=== PATIENT | male | born 1960 | race Caucasian/White ===

== ENCOUNTER 2016-12-09 12:17 | Inpatient (IN) | payer MEDICAID ==
[~2016-12-09] VITALS: Ht 172.7 cm; Wt 61.5 kg
[~2016-12-09 12:17] MED LIST: MULT-950 PO; QUET200T PO; VITAD1000 PO
[2016-12-09] MEDS ORDERED: LORazepam 2 MG TABLET PO PRN (15:30)
[2016-12-09] MEDS ORDERED: HALOPERIDOL 5 MG TABLET PO PRN (15:30)
[2016-12-09 15:36] VITALS: BP 135/79
[2016-12-09] MEDS ORDERED: INFLUENZA VIRUS VACCINE QVS 2016-17 (3YR+)/PF 60 MCG/0.5 ML SYRINGE IM ONE (16:15)
[2016-12-09] MEDS: QUEtiapine FUMARATE 200 MG TABLET PO SCH (20:43)
[2016-12-09 20:56] VITALS: BP 130/82
[2016-12-10 00:04] VITALS: BP 101/68
[2016-12-10 08:20] LABS: BASOPHILS % (AUTO) 0.6 % (0.0-2.0); EOSINOPHILS % (AUTO) 3.3 % (1.0-6.0); HEMATOCRIT 41.1 % (41-53); HEMOGLOBIN 13.3 g/dL (13.5-17.5); LYMPHOCYTES # (AUTO) 3.5 K/uL (1.0-4.8); MEAN CORPUSCULAR HEMOGLOBIN 33.9 pg (26.0-34.0); MEAN CORPUSCULAR HGB CONC 32.4 G/dL (31.0-37.0); MEAN CORPUSCULAR VOLUME 105 fL (80-100); MONOCYTES # (AUTO) 0.5 K/uL (0.1-1.0); MONOCYTES % (AUTO) 7.8 % (2.0-9.0); NEUTROPHILS # (AUTO) 2.7 K/uL (1.8-7.7); NEUTROPHILS % (AUTO) 38.3 % (40.0-70.0); PLATELET COUNT (AUTO) 242 K/uL (150-450); RED BLOOD CELL COUNT(AUTO) 3.93 MIL/uL (4.50-5.90); RED CELL DISTRIBUTION WIDTH 13.9 % (11.5-14.5)
[2016-12-10 08:34] LABS: ALANINE AMINOTRANSFERASE 16 U/L (12-78); ANION GAP 9 mmol/L (8-16); ASPARTATE AMINOTRANSFERASE 8 U/L (15-37); BILIRUBIN,TOTAL 0.3 mg/dL (0.1-1.0); CALCIUM, TOTAL 8.4 mg/dL (8.8-10.5); CARBON DIOXIDE 27 mmol/L (22-29); CHLORIDE 103 mmol/L (98-107); CREATININE 0.83 mg/dL (0.60-1.30); GLOMERULAR FILTR. RATE CALC > 60 mL/min (>60); POTASSIUM 3.3 mmol/L (3.5-5.1); SODIUM SERUM 139 mmol/L (136-145); TOTAL PROTEIN, SERUM 6.2 g/dL (6.4-8.2); UREA NITROGEN, BLOOD 11 mg/dL (7-18)
[2016-12-10 08:45] VITALS: BP 100/67
[2016-12-10 08:59] LABS: RBC MORPHOLOGY COMMENT ABNORMAL RBC MORPH
[2016-12-10] MEDS ORDERED: ONDANSETRON HCL 4 MG TABLET PO PRN (10:30)
[2016-12-10] MEDS ORDERED: ALBUTEROL SULFATE HFA 90 MCG/PUFF 8 GM INHALER IH PRN (10:30)
[2016-12-10] MEDS ORDERED: CloNIDine HCL 0.1 MG TABLET PO PRN (10:30)
[2016-12-10] MEDS ORDERED: MAGNESIUM HYDROXIDE SUSPENSION 30 ML UDCUP PO PRN (10:30)
[2016-12-10] MEDS ORDERED: MAG HYDROX/AL HYDROX/SIMETH ES 30 ML SUSPENSION UDCUP PO PRN (10:30)
[2016-12-10] MEDS ORDERED: BACITRACIN 28.4 GM OINTMENT TP PRN (10:30)
[2016-12-10] MEDS ORDERED: PETROLATUM,WHITE 71 GM JELLY TP PRN (10:30)
[2016-12-10] MEDS ORDERED: IBUPROFEN 600 MG TABLET PO PRN (10:30)
[2016-12-10] MEDS ORDERED: LOPERAMIDE HCL 2 MG CAPSULE PO PRN (10:30)
[2016-12-10] MEDS ORDERED: POTASSIUM CHLORIDE 20 MEQ ER TABLET PO ONE (10:30)
[2016-12-10] MEDS ORDERED: BENZOCAINE/MENTHOL LOZENGE MM PRN (10:30)
[2016-12-10] MEDS ORDERED: ACETAMINOPHEN 325 MG TABLET PO PRN (10:30)
[2016-12-10 16:05] VITALS: BP 104/68
[2016-12-10] MEDS: QUEtiapine FUMARATE 200 MG TABLET PO SCH (20:56)
[2016-12-11 06:10] VITALS: BP 107/61
[2016-12-11] MEDS: CHOLECALCIFEROL (VIT D3) 1,000 UNITS TABLET PO SCH (08:23)
[2016-12-11 08:48] VITALS: BP 129/70
[2016-12-11 16:24] VITALS: BP 112/70
[2016-12-11] MEDS: QUEtiapine FUMARATE 200 MG TABLET PO SCH (20:28)
[2016-12-11] MEDS: ZOLPIDEM TARTRATE 10 MG TABLET PO PRN (21:30)
[2016-12-12 07:26] VITALS: BP 108/68
[2016-12-12 08:45] VITALS: BP 109/70
[2016-12-12] MEDS: CHOLECALCIFEROL (VIT D3) 1,000 UNITS TABLET PO SCH (09:29)
[2016-12-12 16:00] VITALS: BP 109/69
[2016-12-12] MEDS: QUEtiapine FUMARATE 200 MG TABLET PO SCH (20:08)
[2016-12-12] MEDS: ZOLPIDEM TARTRATE 10 MG TABLET PO PRN (21:58)
[2016-12-13 06:37] VITALS: BP_SYST 138; BP_SYST 152; BP_DIAS 82
[2016-12-13 07:39] VITALS: BP 138/80
[2016-12-13 08:05] VITALS: BP 114/68
[2016-12-13] MEDS: CHOLECALCIFEROL (VIT D3) 1,000 UNITS TABLET PO SCH (09:16)
[2016-12-13 16:32] VITALS: BP 107/75
[2016-12-13] MEDS: QUEtiapine FUMARATE 200 MG TABLET PO SCH (20:38)
[2016-12-13] MEDS: ZOLPIDEM TARTRATE 10 MG TABLET PO PRN (22:02)
[2016-12-14 00:05] VITALS: BP 108/68
[2016-12-14 08:05] VITALS: BP 129/70
[2016-12-14] MEDS: CHOLECALCIFEROL (VIT D3) 1,000 UNITS TABLET PO SCH (09:11)
[2016-12-14 16:00] VITALS: BP 127/80
[2016-12-14] MEDS: QUEtiapine FUMARATE 200 MG TABLET PO SCH (20:15)
[2016-12-14] MEDS: ZOLPIDEM TARTRATE 10 MG TABLET PO PRN (21:11)
[2016-12-15 00:12] VITALS: BP 107/64
[2016-12-15 08:35] VITALS: BP 121/76
[2016-12-15] MEDS: CHOLECALCIFEROL (VIT D3) 1,000 UNITS TABLET PO SCH (08:35)
[2016-12-15 16:18] VITALS: BP 105/65
[2016-12-15] MEDS: QUEtiapine FUMARATE 200 MG TABLET PO SCH (20:39)
[2016-12-16 01:09] VITALS: BP 110/69
[2016-12-16 09:00] VITALS: BP 132/80
[2016-12-16] MEDS: CHOLECALCIFEROL (VIT D3) 1,000 UNITS TABLET PO SCH (09:00)
[2016-12-16] MEDS: DIVALPROEX SODIUM 500 MG DR TABLET PO SCH ×2 (10:12→20:30)
[2016-12-16 16:10] VITALS: BP 125/72
[2016-12-16] MEDS: QUEtiapine FUMARATE 200 MG TABLET PO SCH (20:30)
[2016-12-17 00:05] VITALS: BP 137/88
[2016-12-17] MEDS: CHOLECALCIFEROL (VIT D3) 1,000 UNITS TABLET PO SCH (08:52)
[2016-12-17] MEDS: DIVALPROEX SODIUM 500 MG DR TABLET PO SCH ×2 (08:52→20:17)
[2016-12-17 08:57] VITALS: BP 105/66
[2016-12-17 16:06] VITALS: BP 103/70
[2016-12-17] MEDS: QUEtiapine FUMARATE 200 MG TABLET PO SCH (20:17)
[2016-12-17] MEDS: ZOLPIDEM TARTRATE 10 MG TABLET PO PRN (21:39)
[2016-12-18 00:53] VITALS: BP 133/76
[2016-12-18 08:24] VITALS: BP 98/63
[2016-12-18] MEDS: DIVALPROEX SODIUM 500 MG DR TABLET PO SCH (08:44)
[2016-12-18] MEDS: CHOLECALCIFEROL (VIT D3) 1,000 UNITS TABLET PO SCH (08:44)
[2016-12-18] MEDS ORDERED: DIVA500T35 PO (13:43)
== END 2016-12-18 14:30 | disposition home or self-care (01) | DRG 750 ==
LOC: B2S 16:00
PROVIDERS: ADMIT Psychiatry & Neurology Child & Adolescent Psychiatry; ATTEND Psychiatry & Neurology Child & Adolescent Psychiatry
PROC: 3E0234Z Introduction of Serum, Toxoid and Vaccine into Muscle, Percutaneous Approach (ICD-10-PCS; principal; 2016-12-10)
DX: F20.0 Paranoid schizophrenia (principal); E46 Unspecified protein-calorie malnutrition; R45.851 Suicidal ideations; E55.9 Vitamin D deficiency, unspecified; J44.9 Chronic obstructive pulmonary disease, unspecified; K59.00 Constipation, unspecified; E87.6 Hypokalemia; R73.9 Hyperglycemia, unspecified; F17.210 Nicotine dependence, cigarettes, uncomplicated; Z23 Encounter for immunization; Z91.14 Patient's other noncompliance with medication regimen; Z68.20 Body mass index [BMI] 20.0-20.9, adult; Z71.6 Tobacco abuse counseling
CPT/HCPCS: 84132; 90471

== ENCOUNTER 2017-01-02 10:41 | Inpatient (IN) | payer MEDICAID ==
[~2017-01-02] VITALS: Ht 172.7 cm; Wt 62.2 kg
[~2017-01-02 10:41] MED LIST changes: +DIVA500T35 PO; -MULT-950 PO
[2017-01-02 11:13] VITALS: BP 111/78
[2017-01-02] MEDS ORDERED: HALOPERIDOL 5 MG TABLET PO PRN (11:15)
[2017-01-02] MEDS ORDERED: PNEUMOCOCCAL VACCINE POLYVALENT 0.5 ML VIAL [PPSV23] IM ONE (11:45)
[2017-01-02 16:00] VITALS: BP 130/75
[2017-01-02] MEDS: LORazepam 2 MG TABLET PO PRN (17:55)
[2017-01-02] MEDS: ZOLPIDEM TARTRATE 10 MG TABLET PO PRN (20:29)
[2017-01-02] MEDS: DIVALPROEX SODIUM 500 MG DR TABLET PO SCH (20:29)
[2017-01-02] MEDS: QUEtiapine FUMARATE 200 MG TABLET PO SCH (20:29)
[2017-01-03 06:38] VITALS: BP 109/71
[2017-01-03 08:02] LABS: BASOPHILS % (AUTO) 0.6 % (0.0-2.0); EOSINOPHILS % (AUTO) 3.9 % (1.0-6.0); HEMOGLOBIN 13.5 g/dL (13.5-17.5); LYMPHOCYTES # (AUTO) 3.1 K/uL (1.0-4.8); LYMPHOCYTES % (AUTO) 51.9 % (22.0-44.0); MEAN CORPUSCULAR HEMOGLOBIN 33.7 pg (26.0-34.0); MEAN CORPUSCULAR HGB CONC 32.8 G/dL (31.0-37.0); MEAN CORPUSCULAR VOLUME 103 fL (80-100); MONOCYTES # (AUTO) 0.7 K/uL (0.1-1.0); MONOCYTES % (AUTO) 11.6 % (2.0-9.0); NEUTROPHILS # (AUTO) 1.9 K/uL (1.8-7.7); PLATELET COUNT (AUTO) 182 K/uL (150-450); RED CELL DISTRIBUTION WIDTH 13.8 % (11.5-14.5)
[2017-01-03 08:17] LABS: ALANINE AMINOTRANSFERASE 23 U/L (12-78); ALBUMIN 3.1 g/dL (3.4-5.0); ANION GAP 7 mmol/L (8-16); ASPARTATE AMINOTRANSFERASE 11 U/L (15-37); BILIRUBIN,TOTAL 0.3 mg/dL (0.1-1.0); CALCIUM, TOTAL 8.3 mg/dL (8.8-10.5); CARBON DIOXIDE 27 mmol/L (22-29); CHLORIDE 107 mmol/L (98-107); CREATININE 0.84 mg/dL (0.60-1.30); GLOMERULAR FILTR. RATE CALC > 60 mL/min (>60); SODIUM SERUM 141 mmol/L (136-145); UREA NITROGEN, BLOOD 10 mg/dL (7-18)
[2017-01-03 08:35] LABS: APPEARANCE,URINE CLEAR (CLEAR); GLUCOSE, URINE (UA) NEGATIVE (NEGATIVE); KETONES,URINE NEGATIVE (NEGATIVE); LEUKOCYTE ESTERASE ,URINE NEGATIVE (NEGATIVE); OCCULT BLOOD,URINE NEGATIVE (NEGATIVE); PH,URINE 6.5 (5.0-8.0); PROTEIN,URINE NEGATIVE (NEGATIVE)
[2017-01-03 08:36] LABS: ADD UA MICROSCOPIC NO
[2017-01-03 08:45] LABS: RBC MORPHOLOGY COMMENT ABNORMAL RBC MORPH
[2017-01-03] MEDS ORDERED: MAGNESIUM HYDROXIDE SUSPENSION 30 ML UDCUP PO PRN (09:00)
[2017-01-03] MEDS ORDERED: BACITRACIN 28.4 GM OINTMENT TP PRN (09:00)
[2017-01-03] MEDS ORDERED: CloNIDine HCL 0.1 MG TABLET PO PRN (09:00)
[2017-01-03] MEDS ORDERED: ACETAMINOPHEN 325 MG TABLET PO PRN (09:00)
[2017-01-03] MEDS ORDERED: ONDANSETRON HCL 4 MG TABLET PO PRN (09:00)
[2017-01-03] MEDS ORDERED: BENZOCAINE/MENTHOL LOZENGE MM PRN (09:00)
[2017-01-03] MEDS ORDERED: MAG HYDROX/AL HYDROX/SIMETH ES 30 ML SUSPENSION UDCUP PO PRN (09:00)
[2017-01-03] MEDS ORDERED: PETROLATUM,WHITE 71 GM JELLY TP PRN (09:00)
[2017-01-03] MEDS ORDERED: ALBUTEROL SULFATE HFA 90 MCG/PUFF 8 GM INHALER IH PRN (09:00)
[2017-01-03] MEDS: MULTIVITAMINS WITH MINERALS, THERAPEUTIC TABLET PO SCH (09:41)
[2017-01-03] MEDS: CHOLECALCIFEROL (VIT D3) 1,000 UNITS TABLET PO SCH (09:41)
[2017-01-03] MEDS: DIVALPROEX SODIUM 500 MG DR TABLET PO SCH ×2 (09:41→20:26)
[2017-01-03 16:00] VITALS: BP 131/90
[2017-01-03] MEDS: QUEtiapine FUMARATE 200 MG TABLET PO SCH (20:26)
[2017-01-04 00:12] VITALS: BP 90/60
[2017-01-04 07:02] VITALS: BP 130/82
[2017-01-04 08:00] VITALS: BP 130/82
[2017-01-04] MEDS: DIVALPROEX SODIUM 500 MG DR TABLET PO SCH ×2 (09:09→20:42)
[2017-01-04] MEDS: CHOLECALCIFEROL (VIT D3) 1,000 UNITS TABLET PO SCH (09:09)
[2017-01-04] MEDS: MULTIVITAMINS WITH MINERALS, THERAPEUTIC TABLET PO SCH (09:09)
[2017-01-04 16:27] VITALS: BP 100/65
[2017-01-04] MEDS: QUEtiapine FUMARATE 200 MG TABLET PO SCH (20:42)
[2017-01-04] MEDS: ZOLPIDEM TARTRATE 10 MG TABLET PO PRN (20:57)
[2017-01-05 05:26] VITALS: BP 115/72
[2017-01-05 08:37] VITALS: BP 126/80
[2017-01-05] MEDS: CHOLECALCIFEROL (VIT D3) 1,000 UNITS TABLET PO SCH (08:55)
[2017-01-05] MEDS: MULTIVITAMINS WITH MINERALS, THERAPEUTIC TABLET PO SCH (08:55)
[2017-01-05] MEDS: DIVALPROEX SODIUM 500 MG DR TABLET PO SCH ×2 (08:55→20:05)
[2017-01-05 16:07] VITALS: BP 118/77
[2017-01-05] MEDS: QUEtiapine FUMARATE 200 MG TABLET PO SCH (20:05)
[2017-01-05] MEDS: ZOLPIDEM TARTRATE 10 MG TABLET PO PRN (20:55)
[2017-01-06] VITALS (8 sets, daily range): BP systolic 130–143; BP diastolic 67–86
[2017-01-06] MEDS: IBUPROFEN 600 MG TABLET PO PRN (00:28)
[2017-01-06] MEDS: CHOLECALCIFEROL (VIT D3) 1,000 UNITS TABLET PO SCH (08:54)
[2017-01-06] MEDS: MULTIVITAMINS WITH MINERALS, THERAPEUTIC TABLET PO SCH (08:54)
[2017-01-06] MEDS: DIVALPROEX SODIUM 500 MG DR TABLET PO SCH ×2 (08:54→20:27)
[2017-01-06] MEDS: LOPERAMIDE HCL 2 MG CAPSULE PO PRN ×3 (11:34→20:53)
[2017-01-06] MEDS: QUEtiapine FUMARATE 200 MG TABLET PO SCH (20:27)
[2017-01-06] MEDS: ZOLPIDEM TARTRATE 10 MG TABLET PO PRN (20:53)
[2017-01-07] VITALS (8 sets, daily range): BP systolic 100–128; BP diastolic 60–76
[2017-01-07] MEDS: LOPERAMIDE HCL 2 MG CAPSULE PO PRN ×3 (00:56→19:55)
[2017-01-07] MEDS: CHOLECALCIFEROL (VIT D3) 1,000 UNITS TABLET PO SCH (08:49)
[2017-01-07] MEDS: DIVALPROEX SODIUM 500 MG DR TABLET PO SCH ×2 (08:49→20:58)
[2017-01-07] MEDS: MULTIVITAMINS WITH MINERALS, THERAPEUTIC TABLET PO SCH (08:49)
[2017-01-07] MEDS: LORazepam 2 MG TABLET PO PRN (14:02)
[2017-01-07] MEDS: ZOLPIDEM TARTRATE 10 MG TABLET PO PRN (20:58)
[2017-01-07] MEDS: QUEtiapine FUMARATE 200 MG TABLET PO SCH (20:58)
[2017-01-08] VITALS (7 sets, daily range): BP systolic 100–124; BP diastolic 60–82
[2017-01-08] MEDS: IBUPROFEN 600 MG TABLET PO PRN (00:01)
[2017-01-08] MEDS: LOPERAMIDE HCL 2 MG CAPSULE PO PRN ×3 (08:05→20:50)
[2017-01-08] MEDS: CHOLECALCIFEROL (VIT D3) 1,000 UNITS TABLET PO SCH (09:37)
[2017-01-08] MEDS: MULTIVITAMINS WITH MINERALS, THERAPEUTIC TABLET PO SCH (09:37)
[2017-01-08] MEDS: DIVALPROEX SODIUM 500 MG DR TABLET PO SCH ×2 (09:37→20:50)
[2017-01-08] MEDS ORDERED: LACTOBAC ACID/BULG/BIFID/THERM TABLET PO SCH (19:30)
[2017-01-08] MEDS: ZOLPIDEM TARTRATE 10 MG TABLET PO PRN (20:49)
[2017-01-08] MEDS: QUEtiapine FUMARATE 200 MG TABLET PO SCH (20:50)
[2017-01-09 06:14] VITALS: BP 111/70
[2017-01-09 06:19] VITALS: BP 111/70
[2017-01-09] MEDS: DIVALPROEX SODIUM 500 MG DR TABLET PO SCH ×2 (08:51→20:25)
[2017-01-09] MEDS: CHOLECALCIFEROL (VIT D3) 1,000 UNITS TABLET PO SCH (08:51)
[2017-01-09] MEDS: LOPERAMIDE HCL 2 MG CAPSULE PO PRN ×2 (08:51→13:57)
[2017-01-09] MEDS: MULTIVITAMINS WITH MINERALS, THERAPEUTIC TABLET PO SCH (08:51)
[2017-01-09] MEDS ORDERED: LACTOBAC ACID/BULG/BIFID/THERM TABLET PO SCH (09:00)
[2017-01-09 09:57] VITALS: BP 107/68
[2017-01-09 16:18] VITALS: BP 104/60
[2017-01-09] MEDS: DIPHENOXYLATE/ATROP 2.5-0.025 MG TABLET PO PRN (16:55)
[2017-01-09] MEDS: LORazepam 2 MG TABLET PO PRN (16:55)
[2017-01-09] MEDS: LACTOBAC ACID/BULG/BIFID/THERM TABLET PO SCH (20:24)
[2017-01-09] MEDS: ZOLPIDEM TARTRATE 10 MG TABLET PO PRN (20:25)
[2017-01-09] MEDS: QUEtiapine FUMARATE 200 MG TABLET PO SCH (20:25)
[2017-01-10 04:46] VITALS: BP 105/74
[2017-01-10 07:19] VITALS: BP 105/65
[2017-01-10] MEDS: DIPHENOXYLATE/ATROP 2.5-0.025 MG TABLET PO PRN (08:34)
[2017-01-10] MEDS: LACTOBAC ACID/BULG/BIFID/THERM TABLET PO SCH ×2 (08:34→17:29)
[2017-01-10] MEDS: CHOLECALCIFEROL (VIT D3) 1,000 UNITS TABLET PO SCH (08:35)
[2017-01-10] MEDS: DIVALPROEX SODIUM 500 MG DR TABLET PO SCH ×2 (08:35→20:23)
[2017-01-10] MEDS: MULTIVITAMINS WITH MINERALS, THERAPEUTIC TABLET PO SCH (08:35)
[2017-01-10 08:43] VITALS: BP 107/69
[2017-01-10 09:34] LABS: BASOPHILS % (AUTO) 0.4 % (0.0-2.0); EOSINOPHILS % (AUTO) 2.8 % (1.0-6.0); HEMATOCRIT 38.9 % (41-53); HEMOGLOBIN 12.8 g/dL (13.5-17.5); LYMPHOCYTES # (AUTO) 2.4 K/uL (1.0-4.8); LYMPHOCYTES % (AUTO) 30.2 % (22.0-44.0); MEAN CORPUSCULAR HEMOGLOBIN 33.7 pg (26.0-34.0); MEAN CORPUSCULAR VOLUME 102 fL (80-100); MONOCYTES % (AUTO) 12.6 % (2.0-9.0); NEUTROPHILS # (AUTO) 4.2 K/uL (1.8-7.7); PLATELET COUNT (AUTO) 158 K/uL (150-450); RED BLOOD CELL COUNT(AUTO) 3.81 MIL/uL (4.50-5.90); RED CELL DISTRIBUTION WIDTH 13.9 % (11.5-14.5); WHITE BLOOD COUNT (AUTO) 7.9 K/uL (4.5-11.0)
[2017-01-10 09:59] LABS: ALANINE AMINOTRANSFERASE 23 U/L (12-78); ALBUMIN 2.9 g/dL (3.4-5.0); ANION GAP 9 mmol/L (8-16); ASPARTATE AMINOTRANSFERASE 12 U/L (15-37); BILIRUBIN,TOTAL 0.3 mg/dL (0.1-1.0); CALCIUM, TOTAL 7.5 mg/dL (8.8-10.5); CARBON DIOXIDE 27 mmol/L (22-29); CHLORIDE 108 mmol/L (98-107); CREATININE 0.78 mg/dL (0.60-1.30); GLOMERULAR FILTR. RATE CALC > 60 mL/min (>60); PHOSPHORUS 3.5 mg/dL (2.5-4.9); POTASSIUM 3.6 mmol/L (3.5-5.1); SODIUM SERUM 144 mmol/L (136-145); TOTAL PROTEIN, SERUM 6.1 g/dL (6.4-8.2); UREA NITROGEN, BLOOD 16 mg/dL (7-18)
[2017-01-10 10:51] VITALS: BP 107/69
[2017-01-10 16:12] VITALS: BP 111/71
[2017-01-10] MEDS: LORazepam 2 MG TABLET PO PRN (17:29)
[2017-01-10] MEDS: QUEtiapine FUMARATE 200 MG TABLET PO SCH (20:23)
[2017-01-10] MEDS: ZOLPIDEM TARTRATE 10 MG TABLET PO PRN (20:23)
[2017-01-11] MEDS: DIPHENOXYLATE/ATROP 2.5-0.025 MG TABLET PO PRN (06:29)
[2017-01-11 06:33] VITALS: BP 102/64
[2017-01-11] MEDS: CHOLECALCIFEROL (VIT D3) 1,000 UNITS TABLET PO SCH (09:06)
[2017-01-11] MEDS: LACTOBAC ACID/BULG/BIFID/THERM TABLET PO SCH ×2 (09:06→17:16)
[2017-01-11] MEDS: MULTIVITAMINS WITH MINERALS, THERAPEUTIC TABLET PO SCH (09:06)
[2017-01-11] MEDS: DIVALPROEX SODIUM 500 MG DR TABLET PO SCH ×2 (09:06→20:21)
[2017-01-11 09:18] VITALS: BP 107/66
[2017-01-11] MEDS ORDERED: ONDANSETRON HCL 4 MG/2 ML VIAL IM PRN (14:00)
[2017-01-11 16:15] VITALS: BP 102/67
[2017-01-11] MEDS: QUEtiapine FUMARATE 200 MG TABLET PO SCH (20:21)
[2017-01-11] MEDS: ZOLPIDEM TARTRATE 10 MG TABLET PO PRN (20:24)
[2017-01-12 05:11] VITALS: BP 120/71
[2017-01-12] MEDS: DIVALPROEX SODIUM 500 MG DR TABLET PO SCH ×2 (08:02→20:05)
[2017-01-12] MEDS: MULTIVITAMINS WITH MINERALS, THERAPEUTIC TABLET PO SCH (08:02)
[2017-01-12] MEDS: CHOLECALCIFEROL (VIT D3) 1,000 UNITS TABLET PO SCH (08:02)
[2017-01-12] MEDS: DIPHENOXYLATE/ATROP 2.5-0.025 MG TABLET PO PRN ×2 (08:02→16:35)
[2017-01-12] MEDS: LACTOBAC ACID/BULG/BIFID/THERM TABLET PO SCH ×2 (08:02→16:24)
[2017-01-12 08:58] VITALS: BP 118/77
[2017-01-12 16:16] VITALS: BP 117/76
[2017-01-12] MEDS: QUEtiapine FUMARATE 200 MG TABLET PO SCH (20:05)
[2017-01-13 07:07] VITALS: BP 116/73
[2017-01-13 08:20] VITALS: BP 106/64
[2017-01-13] MEDS: LACTOBAC ACID/BULG/BIFID/THERM TABLET PO SCH ×2 (09:11→16:15)
[2017-01-13] MEDS: DIVALPROEX SODIUM 500 MG DR TABLET PO SCH ×2 (09:11→20:14)
[2017-01-13] MEDS: CHOLECALCIFEROL (VIT D3) 1,000 UNITS TABLET PO SCH (09:11)
[2017-01-13] MEDS: MULTIVITAMINS WITH MINERALS, THERAPEUTIC TABLET PO SCH (09:11)
[2017-01-13 16:10] VITALS: BP 101/67
[2017-01-13] MEDS: QUEtiapine FUMARATE 200 MG TABLET PO SCH (20:14)
[2017-01-14 06:42] VITALS: BP 104/64
[2017-01-14 09:11] VITALS: BP 120/76
[2017-01-14] MEDS: DIVALPROEX SODIUM 500 MG DR TABLET PO SCH ×2 (09:39→20:40)
[2017-01-14] MEDS: CHOLECALCIFEROL (VIT D3) 1,000 UNITS TABLET PO SCH (09:39)
[2017-01-14] MEDS: MULTIVITAMINS WITH MINERALS, THERAPEUTIC TABLET PO SCH (09:39)
[2017-01-14] MEDS: LACTOBAC ACID/BULG/BIFID/THERM TABLET PO SCH ×2 (09:39→16:39)
[2017-01-14 16:11] VITALS: BP 110/67
[2017-01-14] MEDS: QUEtiapine FUMARATE 200 MG TABLET PO SCH (20:41)
[2017-01-15 00:32] VITALS: BP 117/72
[2017-01-15 08:39] VITALS: BP 105/70
[2017-01-15] MEDS: MULTIVITAMINS WITH MINERALS, THERAPEUTIC TABLET PO SCH (09:00)
[2017-01-15] MEDS: DIVALPROEX SODIUM 500 MG DR TABLET PO SCH (09:00)
[2017-01-15] MEDS: LACTOBAC ACID/BULG/BIFID/THERM TABLET PO SCH (09:00)
[2017-01-15] MEDS: CHOLECALCIFEROL (VIT D3) 1,000 UNITS TABLET PO SCH (09:00)
[2017-01-15] MEDS ORDERED: LACT1TAB13 PO (14:13)
== END 2017-01-15 14:45 | disposition home or self-care (01) | DRG 750 ==
LOC: B2S 11:18 → EDSTATUS 11:21 → B2S 01-07 23:23
PROVIDERS: ADMIT Psychiatry & Neurology Child & Adolescent Psychiatry; ATTEND Psychiatry & Neurology Child & Adolescent Psychiatry
DX: F20.0 Paranoid schizophrenia (principal); E46 Unspecified protein-calorie malnutrition; E55.9 Vitamin D deficiency, unspecified; J44.9 Chronic obstructive pulmonary disease, unspecified; R45.851 Suicidal ideations; F25.0 Schizoaffective disorder, bipolar type; F22 Delusional disorders; F12.90 Cannabis use, unspecified, uncomplicated; F32.9 Major depressive disorder, single episode, unspecified; G47.00 Insomnia, unspecified; K59.00 Constipation, unspecified; F17.210 Nicotine dependence, cigarettes, uncomplicated; Z71.6 Tobacco abuse counseling
CPT/HCPCS: 83735; 84100; 87045; 87324; 87449; 90471; J2405; Q0162

== ENCOUNTER 2017-01-06 02:14 | Emergency (ER) | payer MEDICAID, OTHER ==
[~2017-01-06] VITALS: Ht 172.7 cm; Wt 72.7 kg
[2017-01-06 02:25] VITALS: BP 152/84
[2017-01-06] MEDS ORDERED: ACETAMINOPHEN 500 MG TABLET PO ONE (02:30)
== END 2017-01-06 03:06 | disposition home or self-care (01) ==
LOC: EMS 02:16
DX: S20.219A Contusion of unspecified front wall of thorax, initial encounter (principal); F17.210 Nicotine dependence, cigarettes, uncomplicated; W01.0XXA Fall on same level from slipping, tripping and stumbling without subsequent striking against object, initial encounter; Y93.89 Activity, other specified; Y92.091 Bathroom in other non-institutional residence as the place of occurrence of the external cause; Y99.8 Other external cause status
CPT/HCPCS: 99283; 99406

== ENCOUNTER 2019-10-04 13:01 | Emergency (ER) | payer OTHER ==
[~2019-10-04] VITALS: Ht 172.7 cm; Wt 52.3 kg
[~2019-10-04 13:01] MED LIST changes: +DIVA-78 PO; -DIVA500T35 PO; +LACT1TAB13 PO; -VITAD1000 PO
[2019-10-04 15:14] LABS: BASOPHILS % (AUTO) 0.2 % (0.0-2.0); EOSINOPHILS % (AUTO) 0 % (1.0-6.0); HEMATOCRIT 32.8 % (41-53); HEMOGLOBIN 11.3 g/dL (13.5-17.5); LYMPHOCYTES # (AUTO) 0.3 K/uL (1.0-4.8); MEAN CORPUSCULAR HEMOGLOBIN 35.7 pg (26.0-34.0); MEAN CORPUSCULAR HGB CONC 34.3 G/dL (31.0-37.0); MEAN CORPUSCULAR VOLUME 104 fL (80-100); MONOCYTES # (AUTO) 0.4 K/uL (0.1-1.0); MONOCYTES % (AUTO) 11.1 % (2.0-9.0); NEUTROPHILS # (AUTO) 2.7 K/uL (1.8-7.7); NEUTROPHILS % (AUTO) 78.7 % (40.0-70.0); PLATELET COUNT (AUTO) 157 K/uL (150-450); RED BLOOD CELL COUNT(AUTO) 3.16 MIL/uL (4.50-5.90); RED CELL DISTRIBUTION WIDTH 14.8 % (11.5-14.5)
[2019-10-04 15:26] LABS: ANION GAP 13 mmol/L (8-16); CALCIUM, TOTAL 8.4 mg/dL (8.8-10.5); CARBON DIOXIDE 23 mmol/L (22-29); CHLORIDE 104 mmol/L (98-107); CREATININE 1.39 mg/dL (0.60-1.30); GLOMERULAR FILTR. RATE CALC 52 mL/min (>60); GLUCOSE,RANDOM 309 mg/dL (70-110); POTASSIUM 3.5 mmol/L (3.5-5.1); SODIUM SERUM 140 mmol/L (136-145); UREA NITROGEN, BLOOD 42 mg/dL (7-18)
[2019-10-04 15:32] LABS: INR 1.1 (0.9-1.1); PROTHROMBIN TIME 11.1 SEC (9.4-11.6)
[2019-10-04 15:37] LABS: B-TYPE NATRIURETIC PEPTIDE 39 pg/mL (0-100)
[2019-10-04 15:50] LABS: ALANINE AMINOTRANSFERASE 30 U/L (12-78); ALBUMIN 3.1 g/dL (3.4-5.0); ALKALINE PHOSPHATASE 65 U/L (46-116); ASPARTATE AMINOTRANSFERASE 14 U/L (15-37); BILIRUBIN,TOTAL 0.6 mg/dL (0.1-1.0); CREATINE KINASE, TOTAL ONLY 77 U/L (39-308); TOTAL PROTEIN, SERUM 6.2 g/dL (6.4-8.2)
[2019-10-04 16:01] LABS: VALPROIC ACID < 3 mcg/mL (50-100)
[2019-10-04] MEDS ORDERED: SODIUM CHLORIDE 0.9% 1,000 ML IV ONE ×4 (16:45→21:30)
[2019-10-04] MEDS ORDERED: LACT1CAP70 PO (16:48)
[2019-10-04 18:42] LABS: APPEARANCE,URINE CLEAR (CLEAR); BILIRUBIN,URINE NEGATIVE (NEGATIVE); GLUCOSE, URINE (UA) >=1000 mg/dL (NEGATIVE); KETONES,URINE NEGATIVE (NEGATIVE); LEUKOCYTE ESTERASE ,URINE NEGATIVE (NEGATIVE); NITRATE,URINE NEGATIVE (NEGATIVE); OCCULT BLOOD,URINE TRACE (NEGATIVE); PH,URINE 7.5 (5.0-8.0); PROTEIN,URINE POS 1+ (NEGATIVE)
[2019-10-04 18:54] LABS: BACTERIA,URINE None Seen /HPF (None Seen); RBC,URINE 0-2 /HPF (0-2); SQUAMOUS EPITHELIAL CELL,UR Rare /LPF (None Seen); WBC,URINE 0-2 /HPF (0-5)
[2019-10-04] MEDS ORDERED: GuaiFENesin/D-METHORPHAN [SUGAR-FREE] 200-20MG/10 ML SYRUP UDCUP PO ONE (19:15)
[2019-10-04] MEDS ORDERED: AZITHROMYCIN 500 MG/NS 250 ML IV ONE (19:30)
[2019-10-04] MEDS ORDERED: CefTRIAXone 1 GM/DEXTROSE 50 ML IV ONE (19:30)
[2019-10-04] MEDS ORDERED: CLOZ100 PO (20:18)
[2019-10-04] MEDS ORDERED: ACETAMINOPHEN 325 MG TABLET PO PRN (20:45)
[2019-10-04] MEDS ORDERED: MAGNESIUM HYDROXIDE SUSPENSION 30 ML UDCUP PO PRN (20:45)
[2019-10-04] MEDS ORDERED: DOCUSATE SODIUM 100 MG CAPSULE PO SCH (21:00)
[2019-10-04] MEDS ORDERED: IOVERSOL 320 MG/ML 100 ML VIAL ONE (21:08)
[2019-10-04] MEDS ORDERED: SODIUM CHLORIDE 0.9% 100 ML ONE (21:08)
[2019-10-04] MEDS ORDERED: MIDAZOLAM HCL 5 MG/ML VIAL ONE (23:21)
[2019-10-04] MEDS ORDERED: LIDOCAINE 1% 10 ML VIAL ONE (23:29)
[2019-10-04] MEDS ORDERED: POVIDONE-IODINE 10% 120 ML SOLUTION TP ONE (23:29)
[2019-10-05 01:42] LABS: GLUCOSE,POINT OF CARE 181 MG/DL (70-110)
[2019-10-05 02:32] VITALS: BP 96/69
[2019-10-05] MEDS ORDERED: PIPERACILLIN/TAZO 3.375 GM/D5W 50 ML IV ONE (03:00)
[2019-10-05] MEDS ORDERED: FAMOTIDINE 20 MG TABLET PO SCH (09:00)
[2019-10-05] MEDS ORDERED: CefTRIAXone 1 GM/DEXTROSE 50 ML IV SCH (20:00)
[2019-10-05] MEDS ORDERED: AZITHROMYCIN 500 MG/NS 250 ML IV SCH (21:00)
[2019-10-06 06:06] LABS: HIV 1-2 SCREEN 4TH GEN W/RFLX Non Reactive (Non Reactive)
== END 2019-10-05 03:15 | disposition short-term general hospital (02) ==
LOC: EMS 13:04 → 5N 19:30 → UNDOADMIN 19:30 → 5N 19:31 → EMS 10-05 03:15
DX: J94.2 Hemothorax (principal); K22.3 Perforation of esophagus; F32.9 Major depressive disorder, single episode, unspecified; F20.9 Schizophrenia, unspecified; F17.210 Nicotine dependence, cigarettes, uncomplicated; Z96.9 Presence of functional implant, unspecified
CPT/HCPCS: 32551; 36415; 70450; 71045; 71275; 72131; 80053; 80164; 81001; 82550; 82962; 83880; 84484; 85025; 85610; 85730; 87389; 96361; 96365; 96367; 99291; J0456; J0696; J2250; J3490; J7030; J7050; Q9967